=== PATIENT | male | born 1965 | race African-American/Black ===

== ENCOUNTER 2019-07-19 07:26 | Emergency (ER) | payer MEDICAID, OTHER ==
[~2019-07-19] VITALS: Ht 172.7 cm; Wt 65.8 kg
[2019-07-19 08:02] LABS: Urine WBC None Seen /hpf (0 - 3)
[2019-07-19 08:12] LABS: Urine Bacteria NONE SEEN /hpf (None Seen); Urine Blood Negative /uL (Negative); Urine Specific Gravity 1.008 (1.001-1.035)
[2019-07-19] MEDS ORDERED: IBUPROFEN 800 MG TAB PO ONE (08:30)
[2019-07-19 08:41] VITALS: BP 134/85
== END 2019-07-19 12:05 | disposition home or self-care (01) ==
LOC: ER 07:26
DX: N28.1 Cyst of kidney, acquired (principal); M79.18 Myalgia, other site
CPT/HCPCS: 76775; 81001

== ENCOUNTER 2023-01-04 10:03 | Emergency (ER) | payer MEDICAID ==
[~2023-01-04] VITALS: Ht 172.7 cm; Wt 66.4 kg
[2023-01-04] MEDS ORDERED: ACET-1304 PO (11:12)
[2023-01-04 11:13] VITALS: BP 162/91; PULSE 86; RESP 20; TEMP 98; O2SAT 97
[2023-01-04] MEDS ORDERED: ACETAMINOPHEN 500 MG TAB PO ONE (11:15)
== END 2023-01-04 11:29 | disposition home or self-care (01) ==
LOC: ER 10:03
DX: R51.9 Headache, unspecified (principal); I10 Essential (primary) hypertension; Y04.2XXA Assault by strike against or bumped into by another person, initial encounter; Y93.89 Activity, other specified; Y92.89 Other specified places as the place of occurrence of the external cause; Y99.8 Other external cause status

== ENCOUNTER 2023-01-12 08:27 | Emergency (ER) | payer MEDICAID ==
[~2023-01-12] VITALS: Ht 172.7 cm; Wt 69.6 kg
[~2023-01-12 08:27] MED LIST: ACET-1304 PO
[2023-01-12 08:57] LABS: Urine Bacteria NONE SEEN /hpf (None Seen); Urine Blood Negative /uL (Negative); Urine Clarity Clear (Clear); Urine Color Straw (Yellow); Urine Mucus FEW (None Seen); Urine Protein, UAD Negative (Negative); Urine Specific Gravity 1.018 (1.001-1.035); Urine Urobilinogen Normal (Negative); Urine WBC 1 /hpf (0 - 3); Urine pH 5.5 (5.0-8.0)
[2023-01-12 09:03] LABS: Basophils # (auto) 0 10 ^3/uL (0-0.2); Basophils % (auto) 0.4 % (0.0-2.0); Eosinophils # (auto) 0.1 10 ^3/uL (0-0.8); Eosinophils % (auto) 3.3 % (0.0-7.0); Hematocrit 43.5 % (41.0-53.0); Hemoglobin 14.7 g/dL (13.5-17.5); Lymphocytes # (auto) 1.3 10 ^3/uL (0.4-5.4); Lymphocytes % (auto) 38.7 % (10.0-50.0); Mean Corpuscular Hemoglobin 32.4 pg (28.0-32.0); Mean Corpuscular Hgb Conc. 33.7 g/dL (32.0-36.0); Mean Corpuscular Volume 96.2 fL (80.0-100.0); Monocytes # (auto) 0.4 10 ^3/uL (0-1.3); Monocytes % (auto) 13.4 % (0.0-12.0); Neutrophils # (auto) 1.4 10 ^3/uL (1.6-8.6); Neutrophils % (auto) 44.2 % (37.0-80.0); Nucleated Red Blood Cells % 0.2 %; Red Blood Cells 4.52 10^6/uL (4.5-5.90); Red Cell Distribution Width 12.2 % (11.8-14.3); White Blood Cell 3.3 10^3/uL (4.4-10.8)
[2023-01-12 09:22] LABS: Albumin 3.7 g/dL (3.4-5.0); Calcium 8.6 mg/dL (8.5-10.1); Potassium 3.8 mmol/L (3.5-5.1)
[2023-01-12 09:26] LABS: BUN/Creatinine Ratio 14.9 (10.0-20.0); Bilirubin, Total 0.9 mg/dL (0.2-1.0); Total Protein 7.4 g/dL (6.4-8.2)
[2023-01-12] MEDS ORDERED: MECL25CH38 PO (10:02)
[2023-01-12 10:15] VITALS: BP 142/87; PULSE 62; RESP 17; TEMP 97; O2SAT 99
[2023-01-12] MEDS ORDERED: MECLIZINE HCL 25 MG TAB PO ONE (10:15)
[2023-01-12] MEDS ORDERED: cloNIDine HCL 0.1 MG TAB PO ONE (10:15)
== END 2023-01-12 10:20 | disposition home or self-care (01) ==
LOC: ER 08:27
DX: I10 Essential (primary) hypertension (principal); R42 Dizziness and giddiness
CPT/HCPCS: 36415; 70450; 80053; 81001; 82962; 85025; 93005

== ENCOUNTER 2023-04-30 12:59 | Emergency (ER) | payer MEDICAID ==
[~2023-04-30] VITALS: Ht 172.7 cm; Wt 68.1 kg
[~2023-04-30 12:59] MED LIST changes: +MECL25CH38 PO
[2023-04-30 13:20] VITALS: BP 124/78; PULSE 102; RESP 22; O2SAT 99
[2023-04-30] MEDS ORDERED: KETOROLAC TROMETH 60MG/2ML VIAL IM ONE (14:45)
[2023-04-30] MEDS ORDERED: METH-1182 PO (15:25)
[2023-04-30] MEDS ORDERED: IBUP-1456 PO (15:25)
== END 2023-04-30 15:34 | disposition home or self-care (01) ==
LOC: ER 12:59
DX: S39.012A Strain of muscle, fascia and tendon of lower back, initial encounter (principal); Z79.1 Long term (current) use of non-steroidal anti-inflammatories (NSAID); Z79.899 Other long term (current) drug therapy; Z88.5 Allergy status to narcotic agent; W18.39XA Other fall on same level, initial encounter; Y93.89 Activity, other specified; Y92.89 Other specified places as the place of occurrence of the external cause; Y99.8 Other external cause status
CPT/HCPCS: 72100; 96372; 99283; J1885